=== PATIENT | male | born 1960 | race Caucasian/White ===

== ENCOUNTER 2021-10-21 06:53 | Outpatient (CLI) | payer BC | END 2021-10-21 06:54 | disposition home or self-care (01) | LOC: BICULT 06:53 | PROVIDERS: ATTEND Family Medicine | DX: R10.84 Generalized abdominal pain (principal); R17 Unspecified jaundice; K80.50 Calculus of bile duct without cholangitis or cholecystitis without obstruction; R16.2 Hepatomegaly with splenomegaly, not elsewhere classified | CPT/HCPCS: 76700 ==

== ENCOUNTER 2021-10-23 13:12 | Observation (INO) | payer BC ==
[~2021-10-23 13:12] MED LIST: Iopamidol-370 76% 500 ML 1 ML ONE
[2021-10-23 13:49] LABS: #Eosinphils 0.1 thou/uL (0.0-0.7); #Lymphocytes 0.9 thou/uL (1.20-3.40); #Monocytes 0.5 thou/uL (0.11-0.59); #Neutrophils 5.5 thou/uL (1.40-6.50); %Basophils 0.4 % (0.0-1.0); %Eosinophils 0.8 % (0.0-10.0); %Lymphocytes 13.4 % (21.0-51.0); %Monocytes 7.2 % (0.0-10.0); %Neutrophils 78.2 % (42.0-75.0); Hemoglobin 15.6 g/dL (14.0-18.0); Mean Corpuscular HGB CONC 33.3 g/dL (32.0-36.0); Mean Corpuscular Hemoglobin 31.4 pg (27.0-31.0); Mean Corpuscular Volume 94.4 fL (78.0-98.0); Mean Platelet Volume 9.8 fL (7.4-10.4); Platelet Count 129 thou/uL (130-400); RBC Distribution Width 13.4 % (11.5-14.5); Red Blood Cell (RBC) Count 4.95 mill/uL (4.70-6.10)
[2021-10-23 14:07] LABS: ALT (SGPT) 37 U/L (8-55); AST (SGOT) 40 U/L (5-34); Albumin 4.2 g/dL (3.5-5.0); Alkaline Phosphatase 331 U/L (40-110); Anion Gap 16 mmol/L (10-20); BUN (Urea Nitrogen) 13 mg/dL (8.4-25.7); Bilirubin, Total 22.2 mg/dL (0.2-1.2); Calc. Creatinine Clearance 0 mL/min (70-130); Calcium 9.9 mg/dL (7.8-10.44); Carbon Dioxide 23 mmol/L (22-29); Chloride 102 mmol/L (98-107); Glucose 130 mg/dL (70-105); Lipase 217 U/L (8-78); Protein, Total 7.2 g/dL (6.0-8.3); Sodium 137 mmol/L (136-145)
[2021-10-23] MEDS ORDERED: Acetaminophen 325 MG TAB PO PRN (15:26)
[2021-10-23] MEDS ORDERED: Ondansetron PF 4 MG/2 ML Vial IVP PRN (15:26)
[2021-10-23] MEDS ORDERED: Piperacillin/Tazobactam 4.5 GM VIAL ONE (15:29)
[2021-10-23 15:38] LABS: Bilirubin 4+ (Negative); Blood, Urine Negative (Negative); Glucose, Urine (Dipstick) Normal (Negative); Ketone, Urine Negative (Negative); Leukocyte Negative Leu/uL (Negative); Nitrite Negative (Negative); Protein, Urine (Dipstick) 10 mg/dL (Neg-Trace); Specific Gravity, Urine 1.023 (1.002-1.036); Urobilinogen Normal mg/dL (Less than 2); pH, Urine 5.5 (5.0-9.0)
[2021-10-23 15:43] LABS: Clarity Hazy (Clear)
[2021-10-23] MEDS: Lactated Ringer's 1,000 ML IV SCH (17:26)
[2021-10-23 17:33] VITALS: BMI 28.7
[2021-10-23] MEDS ORDERED: hydrOXYzine 25 MG TAB PO PRN (17:38)
[2021-10-23] MEDS ORDERED: FLU VACC QS2021-22(6MOS UP)/PF 60 MCG/0.5 ML SYRINGE IM ONE (18:00)
[2021-10-23] MEDS ORDERED: Piperacillin/Tazobactam 3.375 GM in Sodium Chloride 0.9% 100 ML IVPB SCH (18:00)
[2021-10-23] MEDS: Piperacillin/Tazobactam 3.375 GM in Sodium Chloride 0.9% 100 ML IVPB SCH (22:40)
[2021-10-23] MEDS: Famotidine/PF 20 mg/2ml Vial SLOW IVP SCH (22:42)
[2021-10-24] MEDS: Lactated Ringer's 1,000 ML IV SCH ×3 (00:36→13:59)
[2021-10-24] MEDS: Piperacillin/Tazobactam 3.375 GM in Sodium Chloride 0.9% 100 ML IVPB SCH ×3 (05:08→21:09)
[2021-10-24 05:16] LABS: #Eosinphils 0.1 thou/uL (0.0-0.7); #Lymphocytes 1.5 thou/uL (1.20-3.40); #Monocytes 0.6 thou/uL (0.11-0.59); #Neutrophils 3.9 thou/uL (1.40-6.50); %Basophils 0.8 % (0.0-1.0); %Eosinophils 1.5 % (0.0-10.0); %Lymphocytes 24.2 % (21.0-51.0); %Monocytes 9.2 % (0.0-10.0); %Neutrophils 64.3 % (42.0-75.0); Hemoglobin 14.5 g/dL (14.0-18.0); Mean Corpuscular HGB CONC 33.1 g/dL (32.0-36.0); Mean Corpuscular Hemoglobin 31.1 pg (27.0-31.0); Mean Corpuscular Volume 93.9 fL (78.0-98.0); Mean Platelet Volume 9.3 fL (7.4-10.4); Platelet Count 123 thou/uL (130-400); RBC Distribution Width 13.4 % (11.5-14.5); Red Blood Cell (RBC) Count 4.66 mill/uL (4.70-6.10)
[2021-10-24 05:44] LABS: ALT (SGPT) 36 U/L (8-55); AST (SGOT) 40 U/L (5-34); Albumin 3.9 g/dL (3.5-5.0); Alkaline Phosphatase 308 U/L (40-110); Anion Gap 14 mmol/L (10-20); BUN (Urea Nitrogen) 11 mg/dL (8.4-25.7); Calc. Creatinine Clearance 107 mL/min (70-130); Calcium 9.6 mg/dL (7.8-10.44); Carbon Dioxide 27 mmol/L (22-29); Chloride 104 mmol/L (98-107); Globulin 2.6 g/dL (2.4-3.5); Glucose 132 mg/dL (70-105); Lipase 201 U/L (8-78); Potassium 3.9 mmol/L (3.5-5.1); Protein, Total 6.5 g/dL (6.0-8.3); Sodium 141 mmol/L (136-145)
[2021-10-24] MEDS: Famotidine/PF 20 mg/2ml Vial SLOW IVP SCH ×2 (08:41→21:10)
[2021-10-24] MEDS ORDERED: Iothalamate Meglumine 60% 50 ML VIAL FS ONE (09:32)
[2021-10-24] MEDS ORDERED: Indomethacin 50 MG SUPP ONE (09:45)
[2021-10-24] MEDS ORDERED: Fentanyl 250 MCG/5 ML VIAL ONE (10:18)
[2021-10-24] MEDS ORDERED: Lidocaine 1% PF 5 ML VIAL ONE (10:36)
[2021-10-24] MEDS ORDERED: Ondansetron PF 4 MG/2 ML Vial ONE (10:36)
[2021-10-24] MEDS ORDERED: Glycopyrrolate 0.2 MG/ML 5 ML SYRINGE ONE (10:36)
[2021-10-24] MEDS ORDERED: Dexamethasone 20 MG/5 ML VIAL ONE (10:36)
[2021-10-24] MEDS ORDERED: Rocuronium Bromide 10 MG/ML (10ML VIAL) ONE (10:36)
[2021-10-24] MEDS ORDERED: PROPOFOL 200 MG/20 ML VIAL ONE (10:36)
[2021-10-24] MEDS ORDERED: Ondansetron HCl/PF 4 MG/2 ML Vial IVP PRN (11:12)
[2021-10-24] MEDS ORDERED: Promethazine HCl 25 MG/ML VIAL IVPB PRN (11:12)
[2021-10-24] MEDS ORDERED: Promethazine HCl 25 MG/ML VIAL IM PRN (11:12)
[2021-10-24] MEDS ORDERED: Piperacillin/Tazobactam 3.375 GM VIAL ONE (11:50)
[2021-10-24] MEDS ORDERED: Sodium Chloride 0.9% 100 ML ONE (11:51)
[2021-10-24 14:54] LABS: SARS-CoV-2 PCR by NAA Not Detected (NotDetected)
[2021-10-25] MEDS: Piperacillin/Tazobactam 3.375 GM in Sodium Chloride 0.9% 100 ML IVPB SCH (04:37)
[2021-10-25 06:35] LABS: ALT (SGPT) 32 U/L (8-55); AST (SGOT) 33 U/L (5-34); Albumin 3.3 g/dL (3.5-5.0); Alkaline Phosphatase 259 U/L (40-110); Anion Gap 13 mmol/L (10-20); BUN (Urea Nitrogen) 14 mg/dL (8.4-25.7); Bilirubin, Total 19.6 mg/dL (0.2-1.2); Calc. Creatinine Clearance 116 mL/min (70-130); Calcium 8.9 mg/dL (7.8-10.44); Carbon Dioxide 22 mmol/L (22-29); Chloride 107 mmol/L (98-107); Glucose 192 mg/dL (70-105); Potassium 4.2 mmol/L (3.5-5.1); Protein, Total 5.6 g/dL (6.0-8.3); Sodium 138 mmol/L (136-145)
[2021-10-25 07:33] VITALS: BP 132/78; TEMP 98.4
[2021-10-25] MEDS: Famotidine/PF 20 mg/2ml Vial SLOW IVP SCH (08:45)
[2021-10-25 09:33] LABS: Bilirubin, Direct 13.5 mg/dL (0.1-0.3)
== END 2021-10-25 12:05 | disposition home or self-care (01) ==
LOC: ERS 13:12 → SURG B 15:23
PROVIDERS: ADMIT Internal Medicine; ATTEND Family Medicine
PROC: 0F798DZ Dilation of Common Bile Duct with Intraluminal Device, Via Natural or Artificial Opening Endoscopic (ICD-10-PCS; principal; 2021-10-24)
DX: K80.71 Calculus of gallbladder and bile duct without cholecystitis with obstruction (principal); K86.89 Other specified diseases of pancreas; K83.8 Other specified diseases of biliary tract; D69.6 Thrombocytopenia, unspecified; K85.10 Biliary acute pancreatitis without necrosis or infection; R16.2 Hepatomegaly with splenomegaly, not elsewhere classified; N28.1 Cyst of kidney, acquired; E78.5 Hyperlipidemia, unspecified; E78.00 Pure hypercholesterolemia, unspecified; G47.33 Obstructive sleep apnea (adult) (pediatric); Z79.899 Other long term (current) drug therapy; Z88.1 Allergy status to other antibiotic agents; Z20.822 Contact with and (suspected) exposure to COVID-19
CPT/HCPCS: 36415; 74160; 74330; 80048; 80053; 80076; 81003; 82105; 83690; 85025; 86301; 88112; 88305; 96365; 96366; 96375; 96376; G0378; J1100; J2405; J2543; J2704; J3010; J3490; J7120; Q9961-U8; Q9967; S0028; U0003; U0005

== ENCOUNTER 2021-10-29 14:40 | Outpatient (CLI) | payer BC ==
[2021-10-30 02:33] LABS: SARS-CoV-2 PCR by NAA Not Detected (NotDetected)
== END 2021-10-29 14:41 | disposition home or self-care (01) ==
LOC: LABBT 14:40
PROVIDERS: ATTEND Internal Medicine Gastroenterology
DX: K80.42 Calculus of bile duct with acute cholecystitis without obstruction (principal); R17 Unspecified jaundice; Z20.822 Contact with and (suspected) exposure to COVID-19
CPT/HCPCS: U0003; U0005

== ENCOUNTER 2021-10-30 06:03 | Day surgery (SDC) | payer BC ==
[2021-10-29 13:18] VITALS: BMI 27.2
[2021-10-30] MEDS ORDERED: Iothalamate Meglumine 60% 50 ML VIAL FS ONE (07:08)
[2021-10-30] MEDS ORDERED: Fentanyl 250 MCG/5 ML VIAL ONE (07:23)
[2021-10-30] MEDS ORDERED: Midazolam HCl 2 mg/2 ml Vial ONE (07:23)
[2021-10-30] MEDS ORDERED: Indomethacin 50 MG SUPP ONE (08:06)
[2021-10-30] MEDS ORDERED: Glycopyrrolate 0.2 MG/ML 5 ML SYRINGE ONE (08:16)
[2021-10-30] MEDS ORDERED: Rocuronium Bromide 10 MG/ML (10ML VIAL) ONE (08:16)
[2021-10-30] MEDS ORDERED: PROPOFOL 200 MG/20 ML VIAL ONE (08:16)
[2021-10-30] MEDS ORDERED: Lidocaine 1% PF 5 ML VIAL ONE (08:16)
[2021-10-30] MEDS ORDERED: Ondansetron PF 4 MG/2 ML Vial ONE (08:16)
[2021-10-30] MEDS ORDERED: PHENYLEPHRINE-NS 100 MCG/ML 10 ML SYRINGE ONE (08:16)
== END 2021-10-30 10:43 | disposition home or self-care (01) ==
LOC: SDC 06:03
PROVIDERS: ATTEND Internal Medicine Gastroenterology
PROC: 0FPB8DZ Removal of Intraluminal Device from Hepatobiliary Duct, Via Natural or Artificial Opening Endoscopic (ICD-10-PCS; principal; 2021-10-30)
PROC: 0F798DZ Dilation of Common Bile Duct with Intraluminal Device, Via Natural or Artificial Opening Endoscopic (ICD-10-PCS; principal; 2021-10-30)
DX: K80.63 Calculus of gallbladder and bile duct with acute cholecystitis with obstruction (principal); Z79.899 Other long term (current) drug therapy; Z88.1 Allergy status to other antibiotic agents; Z88.8 Allergy status to other drugs, medicaments and biological substances
CPT/HCPCS: 74330; 88112; C2617; J2250; J2405; J2704; J3010; Q9961-U8

== ENCOUNTER 2021-11-01 11:33 | Emergency (ER) | payer BC ==
[2021-11-01] MEDS ORDERED: diphenhydrAMINE 50 MG/ML VIAL ONE (14:01)
[2021-11-01 14:42] LABS: #Basophils 0.1 thou/uL (0.0-0.2); #Lymphocytes 0.9 thou/uL (1.20-3.40); #Monocytes 0.6 thou/uL (0.11-0.59); #Neutrophils 4.5 thou/uL (1.40-6.50); %Eosinophils 0.7 % (0.0-10.0); %Monocytes 9.9 % (0.0-10.0); %Neutrophils 73.4 % (42.0-75.0); Hemoglobin 14.3 g/dL (14.0-18.0); Mean Corpuscular HGB CONC 32.9 g/dL (32.0-36.0); Mean Corpuscular Hemoglobin 30.3 pg (27.0-31.0); Mean Corpuscular Volume 92.2 fL (78.0-98.0); Mean Platelet Volume 9.7 fL (7.4-10.4); Platelet Count 108 thou/uL (130-400); RBC Distribution Width 14.1 % (11.5-14.5); Red Blood Cell (RBC) Count 4.71 mill/uL (4.70-6.10); White Blood Cell (WBC) Count 6.1 thou/uL (4.8-10.8)
[2021-11-01 14:48] LABS: INR-International Normal Ratio 0.9; Prothrombin Time 12.5 sec (12.0-14.7)
[2021-11-01 14:49] LABS: PTT 28.4 sec (22.9-36.1)
[2021-11-01 15:03] LABS: ALT (SGPT) 42 U/L (8-55); AST (SGOT) 56 U/L (5-34); Albumin 3.6 g/dL (3.5-5.0); Alkaline Phosphatase 409 U/L (40-110); Anion Gap 16 mmol/L (10-20); BUN (Urea Nitrogen) 10 mg/dL (8.4-25.7); Calc. Creatinine Clearance 0 mL/min (70-130); Calcium 9.4 mg/dL (7.8-10.44); Carbon Dioxide 21 mmol/L (22-29); Chloride 105 mmol/L (98-107); Glucose 120 mg/dL (70-105); Lipase 175 U/L (8-78); Potassium 4.4 mmol/L (3.5-5.1); Protein, Total 6.6 g/dL (6.0-8.3); Sodium 138 mmol/L (136-145)
[2021-11-01 16:13] LABS: Bilirubin, Total 30.1 mg/dL (0.2-1.2)
[2021-11-01 18:16] LABS: Glucose, Urine (Dipstick) Negative (Negative); Ketone, Urine Negative (Negative)
[2021-11-01 18:18] LABS: Clarity Clear (Clear); Leukocyte Unable to Interpret (Negative); Nitrite Unable to Interpret (Negative); Protein, Urine (Dipstick) Unable to Interpret mg/dL (Neg-Trace)
[2021-11-01 18:19] LABS: Bilirubin Unable to Interpret (Negative); Blood, Urine Unable to Interpret (Negative); Specific Gravity, Urine 1.008 (1.002-1.036); Urobilinogen UNABLE TO INTERPRET mg/dL (Less than 2); pH, Urine 6.5 (5.0-9.0)
[2021-11-01 18:21] LABS: Bacteria/HPF Rare-Few HPF (None Seen); RBC/HPF None Seen HPF (0-3); Squamous Epithelial None Seen HPF (0-3); WBC/HPF 0-3 HPF (0-3)
== END 2021-11-01 18:55 | disposition short-term general hospital (02) ==
LOC: ERS 11:33
DX: K80.51 Calculus of bile duct without cholangitis or cholecystitis with obstruction (principal); K86.89 Other specified diseases of pancreas; E78.5 Hyperlipidemia, unspecified; E78.00 Pure hypercholesterolemia, unspecified
CPT/HCPCS: 80053; 81003; 81015; 83605; 83690; 85025; 85610; 85730; 96374; J1200

== ENCOUNTER 2021-11-27 12:27 | Outpatient (CLI) | payer BC ==
[2021-11-27 13:30] LABS: Anion Gap 14 mmol/L (10-20); BUN (Urea Nitrogen) 15 mg/dL (8.4-25.7); Calc. Creatinine Clearance 0 mL/min (70-130); Calcium 9.2 mg/dL (7.8-10.44); Carbon Dioxide 25 mmol/L (22-29); Chloride 107 mmol/L (98-107); Glucose 102 mg/dL (70-105); Potassium 3.9 mmol/L (3.5-5.1); Sodium 142 mmol/L (136-145)
[2021-11-27 13:41] LABS: #Monocytes 0.4 10x3/uL (0.0-1.1); #Neutrophils 3.8 10x3/uL (1.5-8.4); %Basophils 0.2 % (0.0-2.0); %Eosinophils 0.5 % (0.0-6.0); %Lymphocytes 28.8 % (18.0-47.0); %Monocytes 6.1 % (0.0-10.0); %Neutrophils 64.1 % (40.0-75.0); Hemoglobin 9.3 g/dL (13.5-17.5); Mean Corpuscular HGB CONC 33.1 g/dL (32.0-36.0); Mean Corpuscular Hemoglobin 32.6 pg (27.0-33.0); Mean Corpuscular Volume 98.6 fl (81.2-95.1); Mean Platelet Volume 11.1 fl (7.4-10.4); Platelet Count 148 10x3/uL (150-450); RBC Distribution Width 19.4 % (11.5-14.5); Red Blood Cell (RBC) Count 2.85 10x6/uL (4.32-5.72); White Blood Cell (WBC) Count 5.9 10x3/uL (3.5-10.5)
[2021-11-28 16:09] LABS: SARS-CoV-2 PCR by NAA Not Detected (NotDetected)
== END 2021-11-27 12:28 | disposition home or self-care (01) ==
LOC: LABBT 12:27
PROVIDERS: ATTEND Specialist
DX: Z01.818 Encounter for other preprocedural examination (principal); K80.42 Calculus of bile duct with acute cholecystitis without obstruction; R17 Unspecified jaundice; Z20.822 Contact with and (suspected) exposure to COVID-19
CPT/HCPCS: 80048; 85025; 93005; 93010; U0003; U0005

== ENCOUNTER 2024-09-12 08:00 | Outpatient (CLI) | payer BC | END 2024-09-12 08:01 | disposition home or self-care (01) | LOC: PET 08:00 | PROVIDERS: ATTEND Internal Medicine Hematology & Oncology | DX: C25.8 Malignant neoplasm of overlapping sites of pancreas (principal); R59.0 Localized enlarged lymph nodes | CPT/HCPCS: 78815; A9552 ==